=== PATIENT | female | born 1995 | race Caucasian/White ===

== ENCOUNTER 2020-03-02 08:39 | Emergency (ER) | payer OTHER ==
[~2020-03-02] VITALS: Ht 160 cm; Wt 66.7 kg
[2020-03-02] MEDS ORDERED: ONDANSETRON ODT8 MG PO (11:14)
== END 2020-03-02 12:57 | disposition home or self-care (01) ==
LOC: ED 08:39
DX: U07.1 COVID-19 (principal); F17.200 Nicotine dependence, unspecified, uncomplicated
CPT/HCPCS: 71046; 80053; 81001; 83690; 84703; 85025; 87077; 87088; 87186; 96374; 96375; 99285-25; C9803; J1885; J2405; J7030; U0003

== ENCOUNTER 2020-04-25 15:36 | Emergency (ER) | payer OTHER ==
[~2020-04-25] VITALS: Ht 152.4 cm; Wt 66.2 kg
[~2020-04-25 15:36] MED LIST: ONDANSETRON ODT8 MG PO
[2020-04-25] MEDS ORDERED: ONDANSETRON ODT4 MG PO (18:04)
== END 2020-04-25 18:15 | disposition home or self-care (01) ==
LOC: ED 15:36
DX: K80.20 Calculus of gallbladder without cholecystitis without obstruction (principal); F17.200 Nicotine dependence, unspecified, uncomplicated
CPT/HCPCS: 76705; 80053; 81001; 83690; 84703; 85025; 96374; 96375; 99284-25; J1170; J2405; J7030

== ENCOUNTER 2020-04-26 04:14 | Observation (INO) | payer OTHER ==
[~2020-04-26] VITALS: Ht 160 cm; Wt 67.8 kg
[~2020-04-26 04:14] MED LIST changes: +ONDANSETRON ODT4 MG PO
--- OUTSIDE RECORDS SUMMARY | 2020-04-26 04:16 | XMS ---
PreManage Notification: AKASH STANTON Security Manager Body Events No recent Security Events currently on file CRITERIA MET - [facility] - 2 Visits in 30 Days CARE PROVIDERS In, Outside Clinic[facility] ([facility]) PHONE: [phone] Hailee has no Care Guidelines for this patient. Ava VISIT COUNT (12 MO.) [address] TOTAL 4 NOTE: Visits indicate total known visits. ED/C VISIT TRACKING (12 MO.) 04/26/2020 04:15 [facility] [place] TYPE: Emergency COMPLAINT: - VOMITING 04/25/2020 15:37 [facility] [place] TYPE: Emergency COMPLAINT: - VOMITING 03/02/2020 08:40 [facility] [place] TYPE: Emergency COMPLAINT: - HANDS/LEG NUMBNESS, VOMITING, FLANK PAIN, SOB DIAGNOSES: - COVID-19 - Nicotine dependence, unspecified, uncomplicated - Nausea with vomiting, unspecified 05/13/2019 12:44 [facility] [place] TYPE: Emergency COMPLAINT: - Nausea with vomiting, unspecified - Diarrhea, unspecified - Anxiety disorder, unspecified DIAGNOSES: 1. Nausea with vomiting, unspecified 2. Diarrhea, unspecified 3. Anxiety disorder, unspecified 4. Hypo-osmolality and hyponatremia 5. Hypokalemia 6. Acquired absence of kidney INPATIENT VISIT TRACKING (12 MO.) No inpatient visits to display in this time frame [email or web address]
--- NOTE | 2020-04-26 06:55 | NUR ---
pt ARRIVES FROM ER VIA STRETCHER WITH THIS RN. RATES PAIN 6-7/10 IN ABDOMEN. STATES "I'LL WAIT FOR PAIN MEDICATION IN 10-15 MINUTES". DENIES NAUSEA. IVF INFUSING WNL ORDERED. ORIENATION TO ROOM PROVIDED. CALL LIGHT WITHIN REACH. LIGHTS OFF IN ROOM.
--- NOTE | 2020-04-26 07:41 | NUR ---
REPORT RECEIVED FROM JACI YU. PT RESTING IN BED ANTICIPATING SURGERY TODAY. PT REPORTS MILD NAUSEA AND INTERMITTANT PAIN AT THIS TIME. PT DENIES ADDITIONAL REQUESTS OR COMPLAINTS AT THIS TIME. CALL LIGHT WITHIN REACH. BED RAILS UP.
--- NOTE | 2020-04-26 09:39 | NUR ---
ADMISSION ASSESSMENT AND MORNING CARES DUE. THIS RN TO ROOM. PT RESTING ON RIGHT SIDE WITH EYES CLOSED. PT AWAKENS TO VOICE AND LIGHT TOUCH. PT REPORTS 6/10 PAIN IN ABDOMEN STATING IT "COMES AND GOES" AND IS TOLERABLE AT THIS TIME. PT DENIES NEED FOR PAIN MEDICATION. PT REPORTS SHE USUALLY NEEDS PAIN MEDICAITON "AT A 7 OR 8." ABDOMEN SOFT BUT TENDER TO TOUCH. PT DENIES FEELINGS THAT HER ABDOMEN IS SWOLLEN "EXCEPT LAST WEEK IT SEEMED A LITTLE POOFY." BOWEL TONES ACTIVE. PT UP TO RESTROOM WITH STAND BY ASSIST. PT VOIDS 100ML CLEAR YELLOW URINE, PT PERFORMS SELF LEELA CARE. CHG WIPES PROVIDED BY ROLLER ENGRAVER FOR PT TO WIPE DOWN PRIOR TO SURGERY. PT VERBALIZES UNDERSTANDING OF PROCEEDURE. PT DENIES ADDITIONAL REQUESTS OR COMPLAINTS. PRE PROCEEDURE CHECK LIST COMPLETE. NO ADDITIONAL REQUESTS OR COMPLAINTS. CALL LIGHT WITHIN REACH. BED RAILS UP.
--- NOTE | 2020-04-26 10:00 | NUR ---
PT CALL LIGHT ON. PT REQUESTS PAIN MEDICAITON FOR 09/18 GENERALIZED PAIN STATING "iT'S COMING." AND STARTING TO GET WORSE. SEE MAR FOR MEDICAITON GIVEN. CHARGE NURSE JACI GARCIA, UPDATED ON PT STATUS AND THAT PRE OP ABX HAS NOT BEEN ORDERED. REPORT GIVEN TO JACI YU WHO WILL BE RESUMING CARE OF PT. QUESTIONS ASKED AND ANSWERED.
--- NOTE | 2020-04-26 11:01 | NUR ---
PATIENT DENIES PAIN AND NAUSEA. IVF REPLACED WITH LR AT 85/HR. PT. GIVEN MOUTHSWAB AND WATER. THIS NURSE REVIEWED WHAT TO EXPECT AFTER SURGERY AND ANSWERED QUESTIONS. PT. LEFT RESTING IN BED WITH CALL LIGHT IN REACH.
--- NOTE | 2020-04-26 11:45 | NUR ---
Pt states she lives in a 1 bedroom house with her brother and her 2 children. She works at [employer] in [employer]. She lives 2 min from her mom. She does not use any DME and is active. 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 Has had gallballder pain for over 1 year.. Pt plans on dc to home when cleared medically. States she will have assist from mom and brother.
--- NOTE | 2020-04-26 11:50 | NUR ---
MED REC COMPLETE
--- NOTE | 2020-04-26 14:00 | NUR ---
patient headed to surgery unable to do vitals
--- NOTE | 2020-04-26 14:11 | NUR ---
PATIENT TO SURGERY WITH JACI SANCHEZ.
--- NOTE | 2020-04-26 16:11 | NUR ---
04/26/20 1611 Marion Morales 1605- PT ARRIVES TO PACU AWAKE AND TALKING. RESP EVEN AND UNLABORED. OXYGEN SAT HIGH 90'S TO 100% ON RA.
--- NOTE | 2020-04-26 17:02 | NUR ---
PATIENT BACK TO ROOM AT 1655. REPORT RECIEVED FROM JACI LINARES. PATIENT REPORTS THAT SHE IS COMFORTABLE WITH 2/10 PAIN. X4 SCOPE SITE INTACT ON ABDOMEN WITH STERI STRIPS AND MINIMAL SANGUIOUS DRAINAGE. VITALS ARE STABLE, PATIENT IS VISITING ON THE PHONE WITH FAMILY.
--- NOTE | 2020-04-26 17:18 | NUR ---
PATIENT UP TO VOID WITH MINIMAL ASSIST.
--- NOTE | 2020-04-26 18:15 | NUR ---
PT. VITALS STABLE. REPORTS 3/10 PAIN THAT IS TOLERABLE AND DESCRIBES SORE. TOLERATING FLUIDS WELL AND HAS BEEN AMBULATING TO THE BATHROOM. LAP. SITE DRESSINGS DRY AND INTACT WITH SMALL AMOUND OF DRIED SERISANGUINOUS DRAINAGE. GAUZE COVERING STERISTRIPS. PT. LEFT RESTING IN BED WITH CALL LIGHT IN REACH.
--- NOTE | 2020-04-26 19:15 | NUR ---
PT RESTING IN BED, WATCHING TV. FAMILY IN ROOM. IV FLUIDS INFUSING PER ORDER. NO NEEDS AT THIS TIME. CALL LIGHT IN REACH.
--- NOTE | 2020-04-26 21:29 | NUR ---
ASSESSMENT, VS AND I&O COMPLETED. SCHEDULED MEDS PROVIDED. PRN PAIN MED PROVIDED FOR 5/10 ABD PAIN. JELLO AND ICE WATER PROVIDED. LUNGS CLEAR, HEART TONES REGULAR. ABD SOFT, MINDLY DISTENDED, BOWEL TONES ACTIVE. LAP SITES WNL X4. IV WNL, CDI, FLUSHED WELL. CMS INTACT. GCS 15, A&O X4. NO OTHER NEEDS AT THIS TIME. CALL LIGHT IN REACH.
--- NOTE | 2020-04-27 00:12 | NUR ---
PATIENT GIVEN PRN PAIN MEDICATION FOR 8/10 ABD PAIN. PATIENT DENIES ANY FURTHER NEEDS. CALL LIGHT IN REACH.
--- NOTE | 2020-04-27 02:19 | NUR ---
IN TO GET VITALS, PT ASKED IS ANY MEDS WERE DUE, ASKED THE PT TO SPECIFY, RN INFORMED, ICE WATER GIVEN, NO FURTHER NEEDS
--- NOTE | 2020-04-27 02:36 | NUR ---
PT STATES SHE HAS 8/10 ABD AND SHOULDER PAIN, PRN PAIN MEDS PROVIDED. NEW BAG IV FLUIDS PROVIDED. ASSESSMENT COMPLETED. INCISIONS WNL, SCANT RED DRAINAGE. ABD SOFT, MILDLY DISTENDED, BOWEL TONES ACTIVE, TENDER. CMS INTACT. GCS 15, A&O X4. IV WNL. NO OTHER NEEDS. CALL LIGHT IN REACH.
--- NOTE | 2020-04-27 04:19 | NUR ---
PT RESTING IN BED, EYES CLOSED. RR EVEN, UNLABORED. CALL LIGHT IN REACH.
--- NOTE | 2020-04-27 05:52 | NUR ---
VS AND I&O COMPLETED. PT ASKS TO HAVE IV REMOVED. EDUCATION PROVIDED. PT REFUSED FURTHER IV FLUIDS. PT IS DRINKING AND VOIDING WELL. IV FLUIDS PLACED IN STANDBY. NO OTHER NEEDS AT THIS TIME. CALL LIGHT IN REACH.
--- NOTE | 2020-04-27 08:30 | NUR ---
PATIENT UP IN ROOM, HAS BEEN AMBULATING HALLS ALL MORNING. SCANNED BLADDER AFTER VOID, 40ML OUT, 158 RESIDUAL, CHARTED. JACI SHIPMAN IN ROOM.
--- NOTE | 2020-04-27 09:40 | NUR ---
PATIENT RESTING IN BED, WOKE TO VOICE. VITSALS AND I&OS CHARTED, CALL LIGHT IN REACH, NO OTHER NEEDS AT THIS TIME
--- NOTE | 2020-04-27 10:48 | NUR ---
ROUNDED ON PATIENT AND SHE REPORTS ABD. 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 DISCUSSED WALKING SOON AND PT. AGREEABLE.
[2020-04-27] MEDS ORDERED: ACETAMINOPHEN500 MG PO (11:20)
[2020-04-27] MEDS ORDERED: IBUPROFEN600 MG PO (11:20)
[2020-04-27] MEDS ORDERED: HYDROCODON-ACE1 EA10 PO (11:21)
--- NOTE | 2020-04-27 12:10 | NUR ---
ALL DISCHARGE INSTRUCTIONS REVIEWED WITH PT. AND ALL QUESTIONS ANSWERED. PT. VITALS STABLE AND MILD, TOLERABLE PAIN IN ABD. PT. LEFT BY WHEELCHAIR WITH ALL BELONGINGS AND PICKED UP BY GRANDFATHER.
--- NOTE | 2020-04-27 19:22 | HP ---
[facility] [address], [place] [address] Signed ADMISSION DATE: 04/26/2020 REASON FOR ADMISSION: This 24-year-old woman presented to the emergency room for the 2nd time in two days with persistent pain in the epigastric area, nausea and vomiting. She was seen by Dr. Avina last night and was known from the past to have multiple gallstones within the gallbladder. Her symptoms which began the day before were treated with IV fluids, pain medication, antiemetics. She had persistent vomiting once home and returned for further evaluation. A gallbladder ultrasound had been performed the day prior in the emergency room, though gallstones were known from at least two years ago. She was thought initially apparently to have "gastritis." Patient does use THC on a regular basis. Her evaluation included lab studies which showed a bilirubin of 1.2. Liver enzymes, which were normal. Alkaline phosphatase 132. Her CBC showed an elevated white count of 16,000. I was called in the medical surgery nurse hours, with this information, we recommended a direct admission to the hospital for acute calculous cholecystitis. Currently, she still has some epigastric and interscapular pain. She has had no further nausea or vomiting. 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 I am uncertain of the details of this. This was in 2019. At that time, she was found to have multiple gallstones as well. She has undergone x2. Her oldest child is greater than two years of age. SOCIAL HISTORY: She is unmarried. She has two children. Her mother is taking care of the children currently. She does smoke marijuana and uses alcohol twice a week. REVIEW OF SYSTEMS: She denies any shortness of breath or actual chest pain. She has had no hematemesis, though did have nausea and vomiting previously. PHYSICAL EXAMINATION: GENERAL: Pleasant, somewhat dark-skinned woman who does not look systemically toxic. HEENT: Mucous membranes reasonably moist. Trachea is midline. CHEST: Clear. HEART: Regular without murmur. Electronically Signed By: DARIEL JUNIOR MD 04/27/201921 PATIENT NAME: AKASH STANTON HISTORY AND PHYSICAL DATE OF : [birth year] REPORT #: [id number] PHYSICIAN: DARIEL JUNIOR MD PCP: NO PRIMARY CARE PHYSICIAN REPORT IS CONFIDENTIAL AND NOT TO BE RELEASED WITHOUT AUTHORIZATION [facility] [address], [place] [address] Signed ABDOMEN: Nonobese. There is tenderness in the epigastric and mildly in the subcostal area. There is no mass. EXTREMITIES: Show no clubbing, cyanosis, or edema. LABORATORY STUDIES: Show a white count of 16.0, hematocrit 38.8, platelets 322,000. Chem profile showed a potassium of 3.4, glucose of 118. AST is 95, ALT 65, alkaline phosphatase 132, total bilirubin 1.2. COVID rapid test is negative. IMAGING STUDIES: Reviewed from April 25 (gallbladder ultrasound) shows a normal-appearing liver. However, the gallbladder is considered to be "packed" with stones. The right kidney appears normal. ASSESSMENT: The patient has rather typical acute calculous cholecystitis. Liver enzymes have elevated as well, though there is no other objective sign of common duct obstruction. I would recommend a laparoscopic cholecystectomy with intraoperative cholangiogram, possible common duct exploration depending on clinical findings. The risks of bleeding, infection, bile duct injury, need for open procedure, need for other indicated procedures were reviewed in detail. She understands and wished to proceed. We will plan to do this today. In the meantime, continue with IV antibiotics, n.p.o. status and parenteral antibiotics. MD JONI Tate/KERLINEL /[id number] cc: Garrett Avina MD Copies: GARRETT AVINA MD Electronically Signed By: DARIEL JUNIOR MD 04/27/20 192 PATIENT NAME: AKASH STANTON HISTORY AND PHYSICAL DATE OF : [birth year] REPORT #: [id number] PHYSICIAN: DARIEL JUNIOR MD PCP: NO PRIMARY CARE PHYSICIAN REPORT IS CONFIDENTIAL AND NOT TO BE RELEASED WITHOUT AUTHORIZATION [facility] [address] [place] [address] Signed ~ Electronically Signed By: DARIEL JUNIOR MD 04/27/201921 PATIENT NAME: AKASH STANTON HISTORY AND PHYSICAL DATE OF : [birth year] REPORT #: [id number] PHYSICIAN: DARIEL JUNIOR MD PCP: NO PRIMARY CARE PHYSICIAN REPORT IS CONFIDENTIAL AND NOT TO BE RELEASED WITHOUT AUTHORIZATION
--- NOTE | 2020-04-27 19:22 | OR ---
[facility] [address] [place], [place] [address] Signed DATE OF OPERATION: 04/26/2020 SURGEON: Dariel Junior MD PREOPERATIVE DIAGNOSIS: Acute calculous cholecystitis. POSTOPERATIVE DIAGNOSIS: Acute calculous cholecystitis. PROCEDURES: 1. Laparoscopic cholecystectomy with intraoperative cholangiogram. 2. Surgeon-directed fluoroscopy. ANESTHESIA: General endotracheal, Pal Hendrickson CRNA and local 20 mL of 0.25% Marcaine with epinephrine. 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 She had been seen in the emergency room today as well as yesterday, and gallbladder ultrasound yesterday did confirm multiple gallstones, but essentially normal liver enzymes and white count. She clearly has on clinical examination acute calculous cholecystitis and has been admitted for further evaluation and care. She has been given intravenous antibiotics, fluid resuscitation and so forth, and is now to undergo cholecystectomy preferably by laparoscopic approach. The risks of bleeding, infection, bile duct injury, need for open procedure, and of course failure to cure her symptoms were all reviewed in detail. She understands and wished to proceed. FINDINGS: The gallbladder was acutely inflamed. Once excised, there were multiple variably sized dark stones within the gallbladder. Intraoperative cholangiogram was normal. The liver was normal. There were no other findings of concern. DESCRIPTION OF PROCEDURE: The patient was brought to the operating room, given a general endotracheal anesthetic. Preoperative antibiotic Ancef was given. Sequential compression device stockings were used and heparin subcutaneously administered. The abdomen was prepared with chlorhexidine solution and draped sterilely. An infraumbilical incision was made and Electronically Signed By: DARIEL JUNIOR MD 04/27/201921 PATIENT NAME: AKASH STANTON OPERATIVE REPORT DATE OF : [birth year] REPORT #: [id number] PHYSICIAN: DARIEL JUNIOR MD PCP: NO PRIMARY CARE PHYSICIAN REPORT IS CONFIDENTIAL AND NOT TO BE RELEASED WITHOUT AUTHORIZATION [facility] [address] [place], [place] [address] Signed using an open Brad cannula technique, pneumoperitoneum was achieved to a level of 14 mmHg of carbon dioxide gas. Intraabdominal inspection showed no sign of ascites or carcinomatosis. The gallbladder was obscured from view, but the liver appeared normal. Three additional trocars were placed in usual configuration in the subxiphoid, right midclavicular, and right anterior axillary line. The gallbladder was elevated cephalad and retracted laterally and the inspection showed chronic and subacute inflammatory changes. The common bile duct was easily visualized and well away from the area of the triangle of Calot. Using blunt electrocautery dissection, the triangle of Calot was dissected free. Clips were applied to the cystic arterial branches as necessary. A clip was applied across gallbladder cystic duct junction and a transverse choledochotomy made in the cystic duct allowing for egress of green bile. Using the Olivo-type cholangiocatheter, intraoperative cholangiography was undertaken showing free flow of contrast in biliary tree with prompt emptying into the duodenum. There was no sign of filling defect, biliary anomalies or other abnormality. The catheter was removed and the cystic duct was triply clipped and divided the gallbladder dissected free in a retrograde fashion using electrocautery. Clips were applied to the cystic arterial branches as necessary. The gallbladder was placed in an endobag and extracted through the infraumbilical port site without problem, opened on the back table and found to have multiple size gallstones, both large and small. Mucosa showed no sign of neoplasm. Irrigation was undertaken in subhepatic space. There was no sign of bile leak, bleeding or other problems. The trocars were removed under direct visualization showing no sign of bleeding. The infraumbilical fascial incision was reapproximated with interrupted 0 Vicryl suture. 20 mL of 0.25% Marcaine with epinephrine was injected locally. The skin was then closed with interrupted 3-0 Vicryl. Steri-Strips were applied. The patient was ultimately extubated and transferred to the recovery room in good condition having suffered no complications. Sponge, needle, and instrument counts were reported as correct x3. Dariel Junior MD JM/MODL /[id number] cc: Garrett Avina MD Electronically Signed By: DARIEL JUNIOR MD 04/27/201921 PATIENT NAME: AKASH STANTON OPERATIVE REPORT DATE OF : [birth year] REPORT #: [id number] PHYSICIAN: DARIEL JUNIOR MD PCP: NO PRIMARY CARE PHYSICIAN REPORT IS CONFIDENTIAL AND NOT TO BE RELEASED WITHOUT AUTHORIZATION [address] [address] Signed Copies: GARRETT AVINA MD ~ Electronically Signed By: DARIEL JUNIOR MD 04/27/20 1922 PATIENT NAME: AKASH STANTON OPERATIVE REPORT DATE OF : [birth year] REPORT #: [id number] PHYSICIAN: DARIEL JUNIOR MD PCP: NO PRIMARY CARE PHYSICIAN REPORT IS CONFIDENTIAL AND NOT TO BE RELEASED WITHOUT AUTHORIZATION
== END 2020-04-27 12:10 | disposition home or self-care (01) ==
LOC: ED 04:14 → MS 04:16
PROVIDERS: ADMIT Surgery; ATTEND Surgery
PROC: BF12YZZ Fluoroscopy of Gallbladder using Other Contrast (ICD-10-PCS; 2020-04-26)
PROC: 0FT44ZZ Resection of Gallbladder, Percutaneous Endoscopic Approach (ICD-10-PCS; principal; 2020-04-26 15:00)
DX: K80.00 Calculus of gallbladder with acute cholecystitis without obstruction (principal); F17.210 Nicotine dependence, cigarettes, uncomplicated; Z20.822 Contact with and (suspected) exposure to COVID-19
CPT/HCPCS: 00790; 74300; 80053; 83690; 84703; 85025; A9270; C9803; J0131; J0330; J0690; J1100; J1170; J1644; J1885; J2001; J2270; J2405; J2704; J3010; J3480; J7030; J7121; Q9967; U0003

== ENCOUNTER 2021-01-25 17:47 | Emergency (ER) | payer OTHER ==
[~2021-01-25] VITALS: Ht 160 cm; Wt 78.0 kg
[~2021-01-25 17:47] MED LIST changes: +ACETAMINOPHEN500 MG PO; +HYDROCODON-ACE1 EA10 PO; +IBUPROFEN600 MG PO
--- OUTSIDE RECORDS SUMMARY | 2021-01-25 17:50 | XMS ---
PreManage Notification: AKASH STANTON Security Production Controller Events No recent Security Events currently on file CRITERIA MET - Group Notification CARE PROVIDERS There are no care providers on record at this time. Hailee has no Care Guidelines for this patient. Ava VISIT COUNT (12 MO.) 4 [facility] TOTAL 4 NOTE: Visits indicate total known visits. ED/C VISIT TRACKING (12 MO.) 01/25/2021 17:47 [facility] [place] TYPE: Emergency COMPLAINT: - EYE PROBLEM 04/26/2020 04:15 [facility] [place] TYPE: Emergency COMPLAINT: - VOMITING 04/25/2020 15:37 [facility] [place] TYPE: Emergency COMPLAINT: - VOMITING DIAGNOSES: - Calculus of gallbladder without cholecystitis without obstruction - Nicotine dependence, unspecified, uncomplicated - Nausea with vomiting, unspecified 03/02/2020 08:40 [facility] [place] TYPE: Emergency COMPLAINT: - HANDS/LEG NUMBNESS, VOMITING, FLANK PAIN, SOB DIAGNOSES: - COVID-19 - Nicotine dependence, unspecified, uncomplicated - Nausea with vomiting, unspecified INPATIENT VISIT TRACKING (12 MO.) 04/26/2020 04:16 [facility] [place] TYPE: Observation COMPLAINT: - ACUTE CHOLECYSTITIS DIAGNOSES: - Calculus of gallbladder with acute cholecystitis without obstruction - Nicotine dependence, cigarettes, uncomplicated [email or web address]
[2021-01-25] MEDS ORDERED: MAXITROL EYE DRO5 ML OPTH (18:17)
== END 2021-01-25 18:28 | disposition home or self-care (01) ==
LOC: ED 17:47
DX: H11.421 Conjunctival edema, right eye (principal); F17.200 Nicotine dependence, unspecified, uncomplicated
CPT/HCPCS: 99283

== ENCOUNTER 2021-02-24 11:35 | Emergency (ER) | payer OTHER ==
[~2021-02-24] VITALS: Ht 160 cm; Wt 78.0 kg
[~2021-02-24 11:35] MED LIST changes: +MAXITROL EYE DRO5 ML OPTH
--- OUTSIDE RECORDS SUMMARY | 2021-02-24 11:38 | XMS ---
PreManage Notification: AKASH STANTON Security Hris Administrator Events No recent Security Events currently on file CRITERIA MET - Group Notification - [facility] - 2 Visits in 30 Days CARE PROVIDERS There are no care providers on record at this time. Hailee has no Care Guidelines for this patient. Ava VISIT COUNT (12 MO.) 5 [facility] TOTAL 5 NOTE: Visits indicate total known visits. ED/C VISIT TRACKING (12 MO.) 02/24/2021 11:35 [facility] [place] [facility]: Emergency COMPLAINT: - CHEST PAIN 01/25/2021 17:47 [facility] [place] TYPE: Emergency COMPLAINT: - EYE PROBLEM DIAGNOSES: - Nicotine dependence, unspecified, uncomplicated - Ocular pain, right eye - Conjunctival edema, right eye 04/26/2020 04:15 [facility] [place] TYPE: Emergency COMPLAINT: - VOMITING 04/25/2020 15:37 [facility] [place] TYPE: Emergency COMPLAINT: - VOMITING DIAGNOSES: - Calculus of gallbladder without cholecystitis without obstruction - Nicotine dependence, unspecified, uncomplicated - Nausea with vomiting, unspecified 03/02/2020 08:40 [facility] [place] TYPE: Emergency COMPLAINT: - HANDS/LEG NUMBNESS, VOMITING, FLANK PAIN, SOB DIAGNOSES: - COVID-19 - Nicotine dependence, unspecified, uncomplicated - Nausea with vomiting, unspecified INPATIENT VISIT TRACKING (12 MO.) 04/26/2020 04:16 [facility] [place] TYPE: Observation COMPLAINT: - ACUTE CHOLECYSTITIS DIAGNOSES: - Calculus of gallbladder with acute cholecystitis without obstruction - Nicotine dependence, cigarettes, uncomplicated [email or web address]
[2021-02-24] MEDS ORDERED: ONDANSETRON ODT8 MG PO (14:39)
--- NOTE | 2021-02-25 07:49 | EKG ---
[facility] [address] [facility] [place], [place] [address] Signed Normal sinus rhythm with sinus arrhythmia Normal ECG No previous ECGs available Confirmed by EMILIANO HOLLEY MD ([id number]) on 02/25/2021 7:49:12 AM Electronically Signed By: EMILIANO HOLLEY MD 02/25/21 0749 PATIENT NAME: AKASH STANTON Electrocardiogram DATE OF : [birth year] PHYSICIAN: EMILIANO HOLLEY MD REPORT #: [id number] REPORT IS CONFIDENTIAL AND NOT TO BE RELEASED WITHOUT AUTHORIZATION
== END 2021-02-24 15:23 | disposition home or self-care (01) ==
LOC: ED 11:35
DX: K29.00 Acute gastritis without bleeding (principal); R07.89 Other chest pain; Z20.822 Contact with and (suspected) exposure to COVID-19; F17.200 Nicotine dependence, unspecified, uncomplicated
CPT/HCPCS: 84484; 85025; 85379; 93005; 93010; 96374; 96375; 96376; 99285-25; C9803; J1200; J1885; J2405; J7030; U0003

== ENCOUNTER 2025-01-21 20:48 | Emergency (ER) | payer OTHER ==
[~2025-01-21] VITALS: Ht 160 cm; Wt 70.5 kg
[~2025-01-21 20:48] MED LIST changes: +CEPHALEXIN500 M1 PO; +PROMETHAZINE HC25 M1 PO
--- OUTSIDE RECORDS SUMMARY | 2025-01-21 20:55 | XMS ---
PreManage Notification: AKASH STANTON Security Progress Man Events No recent Security Events currently on file CRITERIA MET - Group Notification CARE PROVIDERS There are no care providers on record at this time. Hailee has no Care Guidelines for this patient. Care History Medical/Surgical 03/04/2021 [facility] \R\- NO PCP LETTER SENT WITH CLINIC LIST. ETerrence VISIT COUNT (12 MO.) 1 [facility] TOTAL 1 NOTE: Visits indicate total known visits. ED/C VISIT TRACKING (12 MO.) 01/21/2025 20:49 [facility] [place] TYPE: Emergency COMPLAINT: - DOG BITE INPATIENT VISIT TRACKING (12 MO.) No inpatient visits to display in this time frame [email or web address]
[2025-01-21] MEDS ORDERED: DIPHTH,PERTUSS(ACELL),TET VAC 0.5 ML SYRINGE IM ONE (21:15)
[2025-01-21] MEDS ORDERED: AMOX TR-K CLV1 EAC1 PO (21:23)
[2025-01-21] MEDS ORDERED: AMOXICILLIN/CLAVULANATE K 875 MG HOME.PACK PO ONE (21:30)
[2025-01-21 22:31] VITALS: BP 121/98
== END 2025-01-21 22:25 | disposition home or self-care (01) ==
LOC: ED 20:48
DX: S61.452A Open bite of left hand, initial encounter (principal); W54.0XXA Bitten by dog, initial encounter
CPT/HCPCS: 90471; 90715; 99282-25